=== PATIENT | female | born 1955 | race African-American/Black ===

== ENCOUNTER 2017-03-13 10:46 | Emergency (ER) | payer BC, OTHER ==
[~2017-03-13] VITALS: Ht 160 cm; Wt 90.3 kg
[~2017-03-13 10:46] MED LIST: ALDACTONE25 MG PO; AMITRIPTYLINE H25 M2 PO; AMLODIPINE BESY10 MG PO; AMLODIPINE BESYL5 MG PO; ASPIRIN EC81 M1 PO; ATACAND HCT 321 EAC1 PO; AUGMENTIN 875875 MG PO; CARAFATE 1 GM TA1 G1 PO; COMPAZINE10 MG PO; DIOVAN HCT 3201 EAC1 PO; GLUCOPHAGE500 MG PO; GLYCOPYRROLATE 22 M1 PO; HYDROCODONE-AP1 EAC6 PO; IBUPROFEN 600600 M1 PO; KLOR-CON 10 ER10 MEQ PO; KLOR-CON 1010 MEQ PO; LANSOPRAZOLE30 MG PO; LEVOTHROID150 MCG PO; LIPITOR40 MG PO; LOPRESSOR 50 MG50 M1 PO; MEDROLDOSEPACK PO; NEXIUM 40 MG CA40 M1 PO; NORCO 5-325 TA1 EACH PO; OMEPRAZOLE40 MG PO; PERCOCET 5-3251 EACH PO; PREVACID 30MG C30 M1 PO; PROAIR HFA8.5 GM INH; PROVENTIL17 G1 IH; SIMVASTATIN40 MG PO; SYNTHROID137 MCG PO; TIROSINT150 MCG PO; TOPROL XL50 MG PO; TORADOL 10 MG T10 MG PO; TRAMADOL 50 MG50 MG PO; VALSARTAN160 MG PO; ZOFRAN ODT4 MG PO; ZPAK PO; ZYRTEC10 M1 PO; ZYRTEC10 M2 PO
[2017-03-13] MEDS ORDERED: METFORMIN HCL500 MG PO (11:23)
[2017-03-13] MEDS ORDERED: NAPROSYN500 MG PO (11:32)
== END 2017-03-13 11:57 | disposition home or self-care (01) ==
LOC: ER 10:46
DX: S63.694A Other sprain of right ring finger, initial encounter (principal); Z98.890 Other specified postprocedural states; Z90.710 Acquired absence of both cervix and uterus; I10 Essential (primary) hypertension; E03.9 Hypothyroidism, unspecified; K21.9 Gastro-esophageal reflux disease without esophagitis; J45.909 Unspecified asthma, uncomplicated; Z91.018 Allergy to other foods; F10.99 Alcohol use, unspecified with unspecified alcohol-induced disorder; X50.9XXA Other and unspecified overexertion or strenuous movements or postures, initial encounter; Y93.89 Activity, other specified; Y92.89 Other specified places as the place of occurrence of the external cause; Y99.8 Other external cause status

== ENCOUNTER 2017-08-03 15:44 | Emergency (ER) | payer BC, OTHER ==
[~2017-08-03] VITALS: Ht 160 cm; Wt 96.6 kg
--- NOTE | ~2017-08-03 | EKG ---
[address] [address] ELECTROCARDIOGRAM REPORT Name: TANGELAJOYCE PAMELLA Room #: [facility] [id number] Admission: 08/03/17 Attend Phys: Discharge: 08/03/17 Date of : 57 Report #: [id number] THIS REPORT FOR: //name// [facility] ED Test Date: 2017-08-03 Test Time: 16:21:33 Pat Name: JOYCE HONEYCUTT Department: Room: Gender: F Onyx Chip Terrazzo Worker: [id number] : 1955 Requested By: Paige Welch Order Number: [id number] MD: Carlos Alberto Dixon Measurements Intervals [place] Rate: 63 P: -16 ID: 180 QRS: -18 QRSD: 92 T: 32 QT: 419 QTc: 429 Interpretive Statements Sinus rhythm Borderline left axis deviation Compared to ECG 03/14/2017 08:23:38 No significant changes Electronically Signed On 08-03-2017 21:20:24 CDT by Carlos Alberto Dixon [email or web address] <ELECTRONICALLY SIGNED> By: Carlos Alberto Dixon MD 08/03/172119 20 20 Carlos Alberto Dixon MD /ELEAZAR
[~2017-08-03 15:44] MED LIST changes: +METFORMIN HCL500 MG PO; +NAPROSYN500 MG PO
[2017-08-03 16:43] LABS: URINE BILIRUBIN NEGATIVE (Negative); URINE BLOOD TRACE (Negative); URINE COLOR YELLOW; URINE GLUCOSE-RANDOM* NEGATIVE (Negative); URINE KETONES NEGATIVE (Negative); URINE NITRITE NEGATIVE (Negative); URINE PROTEIN (DIPSTICK) NEGATIVE (Negative); URINE SPECIFIC GRAVITY <= 1.005 (1.003-1.035); URINE UROBILINOGEN 0.2 E.U./dl (0.2-1.0)
[2017-08-03 17:13] LABS: ABSOLUTE NEUTROPHILS 4.5 thou/uL (1.4-8.2); BASOPHILS 1.8 % (0.0-2.0); EOSINOPHILS 4.3 % (0.0-3.0); HEMATOCRIT 36.8 % (37.0-47.0); LYMPHOCYTES 23.5 % (24.0-44.0); MCH 29.5 pg (26.0-34.0); MCHC 32.6 g/dL (28.0-37.0); MCV 90.6 fL (80.0-100.0); MONOCYTES 6.8 % (1.0-8.0); PLATELET COUNT 156 thou/uL (150-400); POLYS 63.6 % (36.0-66.0); RBC 4.06 mil/uL (4.20-5.00); RDW 13.8 % (10.5-14.5); WBC 7.1 thou/uL (4.0-11.0)
[2017-08-03 17:20] LABS: MANUAL DIFF NO
[2017-08-03 17:23] LABS: ANION GAP 8 mmol/L (7-16); BUN 20 mg/dL (7-18); CALCIUM 9.3 mg/dL (8.5-10.1); CHLORIDE 103 mmol/L (98-107); CO2 28 mmol/L (21-32); CREATININE 1.1 mg/dL (0.6-1.0); GLUCOSE 90 mg/dL (74-106); POTASSIUM 3.8 mmol/L (3.5-5.1); SODIUM 139 mmol/L (136-145)
[2017-08-03 17:31] LABS: ALBUMIN 3.9 g/dL (3.4-5.0); ALKALINE PHOSPHATASE 54 U/L (46-116); SGOT 27 U/L (15-37); SGPT 22 U/L (30-65); TOTAL BILIRUBIN 0.3 mg/dL (<0.1-1.0); TOTAL PROTEIN 7.4 g/dL (6.4-8.2); TROPONIN-I < 0.04 ng/mL (<0.04-0.07)
[2017-08-03] MEDS ORDERED: TRAMADOL 50 MG50 MG PO (18:07)
== END 2017-08-03 18:29 | disposition home or self-care (01) ==
LOC: ER 15:44
PROVIDERS: Nurse Practitioner Family
DX: R07.89 Other chest pain (principal); R94.6 Abnormal results of thyroid function studies; M79.1 Myalgia; I10 Essential (primary) hypertension; K21.9 Gastro-esophageal reflux disease without esophagitis; E11.9 Type 2 diabetes mellitus without complications; J45.909 Unspecified asthma, uncomplicated; M19.90 Unspecified osteoarthritis, unspecified site; E03.9 Hypothyroidism, unspecified; E78.5 Hyperlipidemia, unspecified; F10.99 Alcohol use, unspecified with unspecified alcohol-induced disorder; Z98.890 Other specified postprocedural states; Z90.710 Acquired absence of both cervix and uterus; Z91.018 Allergy to other foods

== ENCOUNTER 2017-08-09 18:47 | Inpatient (IN) | payer BC, OTHER ==
[~2017-08-09] VITALS: Ht 160 cm; Wt 101.6 kg
[2017-08-09 18:51] VITALS: BP 160/86
[2017-08-09 21:28] LABS: ABSOLUTE NEUTROPHILS 5.8 thou/uL (1.4-8.2); EOSINOPHILS 1.2 % (0.0-3.0); HEMATOCRIT 38.6 % (37.0-47.0); HEMOGLOBIN 12.6 gm/dL (12.0-15.0); LYMPHOCYTES 30.7 % (24.0-44.0); MANUAL DIFF NO; MCH 29.8 pg (26.0-34.0); MCHC 32.7 g/dL (28.0-37.0); MCV 91.3 fL (80.0-100.0); MONOCYTES 7.5 % (1.0-8.0); PLATELET COUNT 182 thou/uL (150-400); POLYS 59.6 % (36.0-66.0); RBC 4.23 mil/uL (4.20-5.00); WBC 9.8 thou/uL (4.0-11.0)
[2017-08-09 21:40] LABS: CALCIUM 9.1 mg/dL (8.5-10.1); CREATININE 1.1 mg/dL (0.6-1.0); POTASSIUM 4.3 mmol/L (3.5-5.1)
[2017-08-09 21:43] VITALS: BP 156/74
[2017-08-09 21:47] LABS: ALBUMIN 3.9 g/dL (3.4-5.0); TOTAL BILIRUBIN 0.2 mg/dL (<0.1-1.0)
[2017-08-09 22:20] VITALS: BP 149/71
[2017-08-10 05:07] VITALS: BP 149/54
[2017-08-10 07:28] VITALS: BP 169/83
[2017-08-10 15:50] VITALS: BP 104/63
[2017-08-10 20:04] VITALS: BP 143/74
[2017-08-11 08:00] VITALS: BP 135/73
[2017-08-11] MEDS ORDERED: NORCO 10-325 T1 EACH PO (13:40)
[2017-08-11 13:49] VITALS: BP 135/73
== END 2017-08-11 14:15 | disposition home or self-care (01) | DRG 552 ==
LOC: ER 18:47 → 4S 21:21 → EROBS 21:21 → 4S 22:20
PROVIDERS: Nurse Practitioner Family
DX: M51.16 Intervertebral disc disorders with radiculopathy, lumbar region (principal); I10 Essential (primary) hypertension; E78.5 Hyperlipidemia, unspecified; E03.9 Hypothyroidism, unspecified; K21.9 Gastro-esophageal reflux disease without esophagitis; E11.40 Type 2 diabetes mellitus with diabetic neuropathy, unspecified; G47.33 Obstructive sleep apnea (adult) (pediatric); J45.909 Unspecified asthma, uncomplicated; Z79.899 Other long term (current) drug therapy; Z90.49 Acquired absence of other specified parts of digestive tract; Z91.018 Allergy to other foods; Z82.49 Family history of ischemic heart disease and other diseases of the circulatory system
CPT/HCPCS: 10195

== ENCOUNTER → 2017-12-17 | Outpatient (CLI) | payer BC, OTHER ==
[~2017-12-17] MED LIST changes: +LOPRESSOR50 PO; +NORCO 10-325 T1 EACH PO; +SYNTHROID150 MCG PO; +VALSARTAN-HCTZ1 EAC2 PO
== END ==
LOC: RAD 14:58
DX: M79.644 Pain in right finger(s) (principal)

== ENCOUNTER 2018-10-07 01:34 | Inpatient (IN) | payer BC, OTHER ==
[~2018-10-07] VITALS: Ht 160 cm; Wt 96.4 kg
[2018-10-07] VITALS (7 sets, daily range): BP systolic 127–197; BP diastolic 68–110
--- NOTE | ~2018-10-07 | PATH ---
[facility] [address] [address] PATHOLOGY RPT PROCEDURE Name: PAMELA ANAYA Piedad Room #: 364-P DIS IN M.R.#: [id number] Admission: 10/07/18 Date of : 57 Discharge: 10/10/18 Report #: [id number] Path Case #: [id number] [facility] Accession Number: [id number] . 01 Material submitted: . BX GASTRITIS R/O H. PYLORI . 01 Clinical history: . Pre-op diagnosis: Non-cardiac chest pain Post-op diagnosis: Gastritis R/O H. pylori . 02 Diagnosis: Gastric biopsy "rule out H. pylori": - Mild chronic reactive gastropathy. - The immunoperoxidase stains for Helicobacter pylori is negative. . (SHA:mmque; 10/11/18) [facility]/10/11/2018 . 02 Electronically signed: . Aries Gonzales MD, Pathologist NPI- [id number] . 01 Gross description: . The specimen is received in formalin, labeled "Pamela Anaya, biopsy gastritis, R/O H. pylori". Received are two segments of pale diallo soft tissue measuring 0.3 and 0.5 cm in maximum dimensions. The specimen is submitted entirely in cassette A1. (CAA; 10/10/2018) QAC/QAC . 02 Pathologist provided ICD-10: K31.9 . 02 CPT . 133462, L81675 Specimen Comment: A courtesy copy of this report has been sent to Specimen Comment: [phone]. Specimen Comment: Report sent to Performed at: [address] [id number] MD Eulalio Hernández MD Phone: [phone] Performed at: [address] [id number] [address] [address] PATHOLOGY RPT PROCEDURE Name: TANGELAPAMELA Herbert Room #: 364-P DIS IN M.R.#: [id number] Admission: 10/07/18 Date of : 57 Discharge: 10/10/18 Report #: [id number] Path Case #: [id number] MD Jaimee Glass MD Phone: [phone]
--- NOTE | ~2018-10-07 | 2DMMODE ---
[facility] [place] [place] [address] [facility] [place] [address] 2 D/M-MODE ECHOCARDIOGRAM Name: TANGELAJOYCE Room #: 364-P ADM IN .R.#: [id number] Admission: 10/07/18 Attend Phys: Micheal Brantley, Discharge: Date of : 57 Date of Service: 10/07/18 1347 Report #: [id number] THIS REPORT FOR: //name// APPROVED REPORT Study performed: 10/07/2018 13:06:14 EXAM: Comprehensive 2D, Doppler, and color-flow Echocardiogram Patient Location: Echo lab Room #: 364 Status: routine BSA: 1.95 HR: 57 bpm BP: 137/79 mmHg Rhythm: NSR Other Information Study Quality: Adequate Indications Diabetes Chest Pain Hypertension/HDD 2D Dimensions RVDd: 37.47 mm IVSd: 10.94 (7-11mm) LVOT Diam: 22.48 (18-24mm) LVDd: 43.74 mm PWd: 11.31 (7-11mm) Ascending Ao: 31.73 (22-36mm) LVDs: 32.08 (25-40mm) Aortic Root: 26.95 mm IVC: 11.00 mm Volumes Left Atrial Volume (Systole) Single Plane 4CH: 37.52 mL Single Plane 2CH: 78.31 mL LA ESV Index: 31.00 mL/m2 Aortic Valve AoV Peak Matt.: 1.22 m/s AO Peak Gr.: 5.99 mmHg LVOT Max P.31 mmHg LVOT Max V: 0.91 m/s LOUISE Vmax: 2.95 cm2 Mitral Valve E/A Ratio: 0.[address] [facility] [place] [address] 2 D/M-MODE ECHOCARDIOGRAM Name: JOYCE HONEYCUTT Room #: 364-P [facility] IN [facility]#: [id number] Admission: 10/07/18 Attend Phys: Micheal Brantley, Discharge: Date of : 57 Date of Service: 10/07/18 1347 Report #: [id number] MV Decel. Time: 224.20 ms MV E Max Matt.: 0.50 m/s MV A Matt.: 0.58 m/s MV PHT: 65.02 ms IVRT: 129.18 ms Pulmonary Valve PV Peak Matt.: 0.65 m/s PV Peak Gr.: 1.67 mmHg Pulmonary Vein P Vein S: 0.48 m/s P Vein A: 0.25 m/s P Vein D: 0.27 m/s P Vein A Dur.: 120.0 msec P Vein S/D Ratio: 1.78 Left Ventricle The left ventricle is normal size. There is normal left ventricular wall thickness. Left ventricular systolic function is borderline. LVEF is 50-55%. Grade I - abnormal relaxation pattern. Right Ventricle The right ventricle is normal size. The right ventricular systolic function is normal. Atria The left atrium size is normal. The right atrium size is normal. Aortic Valve The aortic valve is normal in structure. No aortic regurgitation is present. There is no aortic valvular stenosis. Mitral Valve The mitral valve is normal in structure. Trace to mild mitral regurgitation. No evidence of mitral valve stenosis. Tricuspid Valve The tricuspid valve is normal in structure. There is no tricuspid valve regurgitation noted. Pulmonic Valve The pulmonary valve is normal in structure. There is no pulmonic valvular regurgitation. Great Vessels The aortic root is normal in size. IVC is normal in size and collapses >50% with inspiration. [facility] [place] [place] [address] [place] [address] 2 D/M-MODE ECHOCARDIOGRAM Name: JOYCE HONEYCUTT Room #: 364-P [facility] IN .R.#: [id number] Admission: 10/07/18 Attend Phys: Micheal Brantley, Discharge: Date of : 57 Date of Service: 10/07/18 1347 Report #: [id number] Pericardium There is no pericardial effusion. <Conclusion> The left ventricle is normal size. There is normal left ventricular wall thickness. Grade I - abnormal relaxation pattern. The right ventricle is normal size. The left atrium size is normal. The aortic valve is normal in structure. Trace to mild mitral regurgitation. There is no tricuspid valve regurgitation noted. <ELECTRONICALLY SIGNED> By: Dg Landa MD 10/07/18 1347 134 134 Dg Landa MD /INF
--- NOTE | ~2018-10-07 | EKG ---
[address] [address] ELECTROCARDIOGRAM REPORT Name: NOEMI HONEYCUTTMIKEL Herbert Room #: 364-P ADM IN M.R.#: [id number] Admission: 10/07/18 Attend Phys: Micheal Brantley MD Discharge: Date of : 57 Report #: [id number] THIS REPORT FOR: //name// [facility] ED Test Date: 2018-10-07 Test Time: 01:42:23 Pat Name: JOYCE HONEYCUTT Department: Room: 364 Gender: F Fire Sprinkler Service Technician: REGINA : 1955 Requested By: Constance Carpio Order Number: [id number] MD: Edilberto Tomas Measurements Intervals [place] Rate: 93 P: 44 [place]: 165 QRS: -16 QRSD: 94 T: 45 QT: 378 QTc: 471 Interpretive Statements Sinus rhythm Borderline left axis deviation Compared to ECG 08/03/2017 16:21:33 No significant changes Electronically Signed On 10-07-2018 8:56:03 PRINCIPAL SECRETARY by Edilberto Tomas [email or web address] <ELECTRONICALLY SIGNED> By: Edilberto Tomas MD, [facility] 10/07/18 0856 0142 014 Edilberto Tomas MD, FAC /EPI
[~2018-10-07 01:34] MED LIST changes: +SYNTHROID137 MC1 PO; -SYNTHROID150 MCG PO
[2018-10-07 03:01] LABS: ABSOLUTE NEUTROPHILS 3.4 thou/uL (1.4-8.2); BASOPHILS 0.9 % (0.0-2.0); EOSINOPHILS 4.1 % (0.0-3.0); HEMATOCRIT 34.3 % (37.0-47.0); HEMOGLOBIN 11.3 gm/dL (12.0-15.0); LYMPHOCYTES 28.8 % (24.0-44.0); MONOCYTES 10.8 % (1.0-8.0); PLATELET COUNT 210 thou/uL (150-400); POLYS 55.4 % (36.0-66.0); RBC 3.77 mil/uL (4.20-5.00); RDW 13.9 % (10.5-14.5); WBC 6.2 thou/uL (4.0-11.0)
[2018-10-07 03:07] LABS: ANION GAP 9 mmol/L (7-16); BUN 23 mg/dL (7-18); CALCIUM 8.5 mg/dL (8.5-10.1); CHLORIDE 100 mmol/L (98-107); CO2 29 mmol/L (21-32); GLUCOSE 99 mg/dL (74-106); POTASSIUM 3.5 mmol/L (3.5-5.1); SODIUM 138 mmol/L (136-145)
[2018-10-07 03:16] LABS: ALBUMIN 3.5 g/dL (3.4-5.0); SGOT 15 U/L (15-37); SGPT 21 U/L (30-65); TOTAL BILIRUBIN 0.2 mg/dL (<0.1-1.0); TOTAL PROTEIN 7.3 g/dL (6.4-8.2); TROPONIN-I <0.06 ng/mL (<0.06)
[2018-10-07 03:49] LABS: URINE BILIRUBIN NEGATIVE (Negative); URINE BLOOD TRACE (Negative); URINE CLARITY CLEAR; URINE COLOR YELLOW; URINE GLUCOSE-RANDOM* NEGATIVE (Negative); URINE KETONES NEGATIVE (Negative); URINE LEUKOCYTES NEGATIVE (Negative); URINE NITRITE NEGATIVE (Negative); URINE PROTEIN (DIPSTICK) NEGATIVE (Negative); URINE SPECIFIC GRAVITY <= 1.005 (1.005-1.035); URINE UROBILINOGEN 0.2 E.U./dl (0.2-1.0)
[2018-10-07] MEDS ORDERED: OLMESARTAN-HCT1 EACH PO (04:32)
[2018-10-07 09:21] LABS: CHOLESTEROL 214 mg/dL (<200); HDL CHOLESTEROL 39 mg/dL (>40); LDL CHOLESTEROL 146 mg/dL (<100); TC:HDL 5.5 Ratio (Not establshd); TRIGLYCERIDE 149 mg/dL (<150); TROPONIN-I <0.06 ng/mL (<0.06); VLDL 30 mg/dL (<40)
[2018-10-07 23:07] LABS: GLYCOHEMOGLOBIN (HGB A1C) 5.5 % (4.8-5.6)
[2018-10-08 05:34] VITALS: BP 117/76
[2018-10-08 07:55] VITALS: BP 138/80
[2018-10-08 16:57] VITALS: BP 141/84
[2018-10-08 19:40] VITALS: BP 125/75
[2018-10-09 05:25] VITALS: BP 114/73
[2018-10-09 07:28] VITALS: BP 142/77
[2018-10-09] MEDS ORDERED: PANTOPRAZOLE SO40 M1 PO (09:17)
[2018-10-09 15:42] VITALS: BP 146/76
[2018-10-09 20:00] VITALS: BP 115/68
[2018-10-10 03:20] VITALS: BP 107/56
[2018-10-10 08:06] VITALS: BP 125/63
[2018-10-10] MEDS ORDERED: CARDIZEM CD120 MG PO (09:08)
[2018-10-10 10:00] VITALS: BP 125/63
[2018-10-10 10:17] VITALS: BP 125/63
== END 2018-10-10 11:54 | disposition home or self-care (01) | DRG 392 ==
LOC: ER 01:34 → EROBS 04:11 → 3W 04:11 → ENTRNSPT 10-10 11:22 → EDTRNSPTSTS 10-10 11:26 → 3W 10-10 11:54
PROVIDERS: Emergency Medicine; Nurse Practitioner Acute Care
PROC: 0DB68ZX Excision of Stomach, Via Natural or Artificial Opening Endoscopic, Diagnostic (ICD-10-PCS; principal; 2018-10-09)
DX: K29.70 Gastritis, unspecified, without bleeding (principal); K52.9 Noninfective gastroenteritis and colitis, unspecified; I10 Essential (primary) hypertension; K22.4 Dyskinesia of esophagus; E78.5 Hyperlipidemia, unspecified; E03.9 Hypothyroidism, unspecified; K21.9 Gastro-esophageal reflux disease without esophagitis; J45.909 Unspecified asthma, uncomplicated; G47.33 Obstructive sleep apnea (adult) (pediatric); E11.42 Type 2 diabetes mellitus with diabetic polyneuropathy; L53.8 Other specified erythematous conditions; Z90.49 Acquired absence of other specified parts of digestive tract; Z91.02 Food additives allergy status; Z90.710 Acquired absence of both cervix and uterus; Z90.721 Acquired absence of ovaries, unilateral; Z82.49 Family history of ischemic heart disease and other diseases of the circulatory system; Z79.82 Long term (current) use of aspirin; Z83.2 Family history of diseases of the blood and blood-forming organs and certain disorders involving the immune mechanism; Z79.899 Other long term (current) drug therapy
CPT/HCPCS: 10879; 62110; 62900; 70005

== ENCOUNTER 2019-01-13 16:24 | Emergency (ER) | payer BC, OTHER ==
[~2019-01-13] VITALS: Ht 160 cm; Wt 92.5 kg
[~2019-01-13 16:24] MED LIST changes: +CARDIZEM CD120 MG PO; +OLMESARTAN-HCT1 EACH PO; +PANTOPRAZOLE SO40 M1 PO
[2019-01-13 16:46] LABS: ABSOLUTE NEUTROPHILS 2.6 thou/uL (1.4-8.2); BASOPHILS 0.5 % (0.0-2.0); EOSINOPHILS 3.4 % (0.0-3.0); HEMATOCRIT 36.9 % (37.0-47.0); HEMOGLOBIN 12.3 gm/dL (12.0-15.0); LYMPHOCYTES 30.6 % (24.0-44.0); MCH 30.3 pg (26.0-34.0); MCHC 33.2 g/dL (28.0-37.0); MCV 91.2 fL (80.0-100.0); MONOCYTES 9.7 % (1.0-8.0); PLATELET COUNT 239 thou/uL (150-400); POLYS 55.8 % (36.0-66.0); RBC 4.05 mil/uL (4.20-5.00); RDW 13.5 % (10.5-14.5); WBC 4.7 thou/uL (4.0-11.0)
[2019-01-13 16:48] LABS: URINE BILIRUBIN NEGATIVE (Negative); URINE BLOOD NEGATIVE (Negative); URINE CLARITY CLEAR; URINE COLOR YELLOW; URINE GLUCOSE-RANDOM* NEGATIVE (Negative); URINE KETONES NEGATIVE (Negative); URINE LEUKOCYTES-REFLEX NEGATIVE (Negative); URINE NITRITE-REFLEX NEGATIVE (Negative); URINE PROTEIN (DIPSTICK) NEGATIVE (Negative)
[2019-01-13 17:38] LABS: CALCIUM 8.7 mg/dL (8.5-10.1); CREATININE 1.1 mg/dL (0.6-1.0); POTASSIUM 3.6 mmol/L (3.5-5.1)
[2019-01-13 17:43] LABS: LIPASE 96 U/L (73-393); TROPONIN-I <0.06 ng/mL (<0.06)
[2019-01-13 17:44] LABS: ALBUMIN 3.7 g/dL (3.4-5.0); TOTAL BILIRUBIN 0.2 mg/dL (<0.1-1.0); TOTAL PROTEIN 7.5 g/dL (6.4-8.2)
[2019-01-13] MEDS ORDERED: PHENERGAN 25 MG25 M1 PO (19:15)
[2019-01-13] MEDS ORDERED: ZANTAC 150MG T150 MG PO (19:15)
[2019-01-13 19:43] VITALS: BP 154/82
== END 2019-01-13 19:46 | disposition home or self-care (01) ==
LOC: ER 16:24
PROVIDERS: Nurse Practitioner Family
DX: R10.13 Epigastric pain (principal); R11.2 Nausea with vomiting, unspecified; R19.7 Diarrhea, unspecified; I10 Essential (primary) hypertension; E78.5 Hyperlipidemia, unspecified; E03.9 Hypothyroidism, unspecified; K21.9 Gastro-esophageal reflux disease without esophagitis; J45.909 Unspecified asthma, uncomplicated; G47.33 Obstructive sleep apnea (adult) (pediatric); E11.43 Type 2 diabetes mellitus with diabetic autonomic (poly)neuropathy; Z91.018 Allergy to other foods; Z90.49 Acquired absence of other specified parts of digestive tract; Z90.710 Acquired absence of both cervix and uterus; Z90.721 Acquired absence of ovaries, unilateral

== ENCOUNTER 2019-01-20 07:24 | Emergency (ER) | payer BC, OTHER ==
[~2019-01-20] VITALS: Ht 160 cm; Wt 93.0 kg
[~2019-01-20 07:24] MED LIST changes: +PHENERGAN 25 MG25 M1 PO; +ZANTAC 150MG T150 MG PO
--- NOTE | 2019-01-20 08:51 | EKG ---
[place] [address] [place] [address] ELECTROCARDIOGRAM REPORT Name: TANGELAJOYCE Room #: [facility] Rene#: [id number] ������������������ Admission: 01/20/19 ������������������ Attend Phys: Discharge: ������������������ Date of : 57 Report #: [id number] ����������������������������������������������������������������� [id number] THIS REPORT FOR: //name// [facility] ED Test Date: 2019-01-20 Test Time: 08:22:06 Pat Name: JOYCE HONEYCUTT Department: Room: Gender: F Herpetologist: ISABELA : 1955 Requested By: Constance Carpio Order Number: [id number] MD: Edilberto Tomas Measurements Intervals [place] Rate: 89 P: 47 ME: 166 QRS: -11 QRSD: 89 T: 39 QT: 360 QTc: 439 Interpretive Statements Sinus rhythm No significant abnormality Compared to ECG 10/07/2018 01:42:23 No significant changes Electronically Signed On 01-20-2019 8:51:20 CDT by Edilberto Tomas [email or web address] ��������������������������������������������� <ELECTRONICALLY SIGNED> ���������������������������������������� By: Edilberto Tomas MD, [facility] ��������������������������������������������� 01/20/19 0851 0822 1 Edilberto Tomas MD, FACC /EPI
[2019-01-20] MEDS ORDERED: TESSALON PERLE100 MG PO (10:22)
[2019-01-20] MEDS ORDERED: GUAIFEN-CODEINE10 ML PO (10:22)
[2019-01-20 10:43] VITALS: BP 129/73
== END 2019-01-20 10:43 | disposition home or self-care (01) ==
LOC: ER 07:24
DX: J06.9 Acute upper respiratory infection, unspecified (principal); I10 Essential (primary) hypertension; E78.5 Hyperlipidemia, unspecified; E03.9 Hypothyroidism, unspecified; K21.9 Gastro-esophageal reflux disease without esophagitis; J45.909 Unspecified asthma, uncomplicated; G47.33 Obstructive sleep apnea (adult) (pediatric); E11.42 Type 2 diabetes mellitus with diabetic polyneuropathy; Z90.49 Acquired absence of other specified parts of digestive tract; Z90.710 Acquired absence of both cervix and uterus; Z90.721 Acquired absence of ovaries, unilateral; Z91.02 Food additives allergy status

== ENCOUNTER 2019-04-01 20:07 | Emergency (ER) | payer BC, OTHER ==
[~2019-04-01] VITALS: Ht 160 cm; Wt 90.7 kg
[~2019-04-01 20:07] MED LIST changes: +GUAIFEN-CODEINE10 ML PO; +TESSALON PERLE100 MG PO
[2019-04-01 20:14] VITALS: BP 175/90
[2019-04-01] MEDS ORDERED: MOBIC15 MG PO (20:24)
== END 2019-04-01 21:04 | disposition home or self-care (01) ==
LOC: ER 20:07
DX: M72.2 Plantar fascial fibromatosis (principal); I10 Essential (primary) hypertension; E78.5 Hyperlipidemia, unspecified; E03.9 Hypothyroidism, unspecified; E11.9 Type 2 diabetes mellitus without complications; K21.9 Gastro-esophageal reflux disease without esophagitis; J45.909 Unspecified asthma, uncomplicated; G47.33 Obstructive sleep apnea (adult) (pediatric); G62.9 Polyneuropathy, unspecified; Z91.018 Allergy to other foods

== ENCOUNTER 2019-08-12 19:09 | Emergency (ER) | payer BC, OTHER ==
[~2019-08-12] VITALS: Ht 160 cm; Wt 102.1 kg
[~2019-08-12 19:09] MED LIST changes: +MOBIC15 MG PO
[2019-08-12 21:15] LABS: ABSOLUTE NEUTROPHILS 3.5 thou/uL (1.4-8.2); BASOPHILS 1.4 % (0.0-2.0); HEMOGLOBIN 12.6 gm/dL (12.0-15.0); LYMPHOCYTES 36.9 % (24.0-44.0); MCH 29.7 pg (26.0-34.0); MCHC 32.5 g/dL (28.0-37.0); MCV 91.5 fL (80.0-100.0); MONOCYTES 8.2 % (1.0-8.0); PLATELET COUNT 198 thou/uL (150-400); POLYS 49.5 % (36.0-66.0); RBC 4.26 mil/uL (4.20-5.00); RDW 13.8 % (10.5-14.5)
[2019-08-12 21:21] LABS: ANION GAP 10 mmol/L (7-16); BUN 21 mg/dL (7-18); CALCIUM 9.3 mg/dL (8.5-10.1); CHLORIDE 105 mmol/L (98-107); CO2 26 mmol/L (21-32); CREATININE 1.1 mg/dL (0.6-1.0); GLUCOSE 94 mg/dL (74-106); POTASSIUM 4.7 mmol/L (3.5-5.1); SODIUM 141 mmol/L (136-145)
[2019-08-12 21:29] LABS: TROPONIN-I <0.06 ng/mL (<0.06)
[2019-08-12] MEDS ORDERED: PREDNISONE 20 M20 MG PO (21:54)
[2019-08-12] MEDS ORDERED: VENTOLIN HFA 1818 GM INH (21:54)
[2019-08-12 22:19] VITALS: BP 155/77
--- NOTE | 2019-08-13 17:32 | EKG ---
[place] [address] [facility] [place] [address] ELECTROCARDIOGRAM REPORT Name: JOYCE HONEYCUTT Room #: DEP Rene#: [id number] Admission: 08/12/19 Attend Phys: Discharge: 08/12/19 Date of : 57 Report #: [id number] THIS REPORT FOR: //name// [facility] ED Test Date: 2019-08-12 Test Time: 20:27:06 Pat Name: JOYCE HONEYCUTT Department: Room: Gender: Senior Case Manager: VAIHDKARY : 1955 Requested By: Ross Rich Order Number: [id number] MD: Edilberto Tomas Measurements Intervals [place] Rate: 72 P: -13 MD: 180 QRS: -22 QRSD: 93 T: 33 QT: 404 QTc: 443 Interpretive Statements Sinus rhythm Leftward axis Baseline wander in lead(s) V2 Compared to ECG 01/20/2019 08:22:06 No significant changes Electronically Signed On 08-13-2019 17:32:03 CDT by Edilberto Tomas [email or web address] <ELECTRONICALLY SIGNED> By: Edilberto Toams MD, [facility] 08/13/19 173 26 26 Edilberto Tomas MD, FACC /EPI
== END 2019-08-12 22:20 | disposition home or self-care (01) ==
LOC: ER 19:09
PROVIDERS: Emergency Medicine
DX: R06.02 Shortness of breath (principal); I10 Essential (primary) hypertension; E11.40 Type 2 diabetes mellitus with diabetic neuropathy, unspecified; E78.5 Hyperlipidemia, unspecified; K21.9 Gastro-esophageal reflux disease without esophagitis; J45.909 Unspecified asthma, uncomplicated; G47.30 Sleep apnea, unspecified; E03.9 Hypothyroidism, unspecified; Z90.49 Acquired absence of other specified parts of digestive tract; Z90.710 Acquired absence of both cervix and uterus; Z98.890 Other specified postprocedural states; Z91.018 Allergy to other foods

== ENCOUNTER 2019-10-27 18:32 | Emergency (ER) | payer BC, OTHER ==
[~2019-10-27] VITALS: Ht 160 cm; Wt 102.1 kg
[~2019-10-27 18:32] MED LIST changes: +PREDNISONE 20 M20 MG PO; +VENTOLIN HFA 1818 GM INH
[2019-10-27 19:03] VITALS: BP 193/105
[2019-10-27 21:52] LABS: ABSOLUTE NEUTROPHILS 4.7 thou/uL (1.4-8.2); BASOPHILS 1.7 % (0.0-2.0); HEMATOCRIT 37.6 % (37.0-47.0); HEMOGLOBIN 12.2 gm/dL (12.0-15.0); LYMPHOCYTES 22.8 % (24.0-44.0); MCH 29.6 pg (26.0-34.0); MCHC 32.4 g/dL (28.0-37.0); MCV 91.3 fL (80.0-100.0); MONOCYTES 9.3 % (1.0-8.0); PLATELET COUNT 156 thou/uL (150-400); POLYS 63.2 % (36.0-66.0); RBC 4.11 mil/uL (4.20-5.00); RDW 13.6 % (10.5-14.5); WBC 7.4 thou/uL (4.0-11.0)
[2019-10-27 21:58] LABS: CALCIUM 10.2 mg/dL (8.5-10.1); CREATININE 1.3 mg/dL (0.6-1.0); POTASSIUM 4.3 mmol/L (3.5-5.1)
[2019-10-27] MEDS ORDERED: ZOFRAN ODT4 MG PO (22:37)
[2019-10-27] MEDS ORDERED: NORCO 5-325 TA1 EAC1 PO (22:37)
[2019-10-27] MEDS ORDERED: SENNA-DOCUSATE1 EAC1 PO (22:37)
[2019-10-27] MEDS ORDERED: DOXYCYCLINE 10100 MG PO (22:37)
[2019-10-27] MEDS ORDERED: IBUPROFEN 800800 M1 PO (22:37)
== END 2019-10-27 23:00 | disposition home or self-care (01) ==
LOC: ER 18:32
PROVIDERS: Emergency Medicine
DX: L03.113 Cellulitis of right upper limb (principal); I10 Essential (primary) hypertension; E78.5 Hyperlipidemia, unspecified; E03.9 Hypothyroidism, unspecified; K21.9 Gastro-esophageal reflux disease without esophagitis; E11.42 Type 2 diabetes mellitus with diabetic polyneuropathy; G47.33 Obstructive sleep apnea (adult) (pediatric); Z91.02 Food additives allergy status; Z91.018 Allergy to other foods

== ENCOUNTER → 2019-11-17 | Outpatient (CLI) | payer BC, OTHER ==
[~2019-11-17] MED LIST changes: +DOXYCYCLINE 10100 MG PO; +IBUPROFEN 800800 M1 PO; +NORCO 5-325 TA1 EAC1 PO; +SENNA-DOCUSATE1 EAC1 PO
== END ==
LOC: CAT 15:11
DX: K76.0 Fatty (change of) liver, not elsewhere classified (principal); M43.16 Spondylolisthesis, lumbar region; N28.1 Cyst of kidney, acquired; M47.815 Spondylosis without myelopathy or radiculopathy, thoracolumbar region; M48.061 Spinal stenosis, lumbar region without neurogenic claudication; M12.88 Other specific arthropathies, not elsewhere classified, other specified site; M47.816 Spondylosis without myelopathy or radiculopathy, lumbar region; K42.9 Umbilical hernia without obstruction or gangrene

== ENCOUNTER 2020-03-23 19:07 | Inpatient (IN) | payer BC, OTHER ==
[~2020-03-23] VITALS: Ht 160 cm; Wt 112.0 kg
[2020-03-23 19:26] VITALS: BP 181/96
[2020-03-23] MEDS ORDERED: LEVO-T25 MCG PO (20:01)
[2020-03-23] MEDS ORDERED: OMEPRAZOLE 20 M20 M1 PO (20:01)
[2020-03-23 20:17] LABS: ABSOLUTE NEUTROPHILS 8.7 thou/uL (1.4-8.2); BASOPHILS 1.2 % (0.0-2.0); EOSINOPHILS 1.8 % (0.0-3.0); HEMATOCRIT 37.4 % (37.0-47.0); HEMOGLOBIN 12.3 gm/dL (12.0-15.0); MCH 29.5 pg (26.0-34.0); MCHC 32.9 g/dL (28.0-37.0); MCV 89.8 fL (80.0-100.0); MONOCYTES 7.2 % (1.0-8.0); PLATELET COUNT 202 thou/uL (150-400); POLYS 80.8 % (36.0-66.0); RBC 4.16 mil/uL (4.20-5.00); RDW 14.5 % (10.5-14.5); WBC 10.7 thou/uL (4.0-11.0)
[2020-03-23 20:25] LABS: ANION GAP 8 mmol/L (7-16); BUN 17 mg/dL (7-18); CALCIUM 8.8 mg/dL (8.5-10.1); CHLORIDE 101 mmol/L (98-107); CO2 31 mmol/L (21-32); CREATININE 1.3 mg/dL (0.6-1.0); GLUCOSE 121 mg/dL (74-106); POTASSIUM 3.3 mmol/L (3.5-5.1); SODIUM 140 mmol/L (136-145)
[2020-03-23 20:35] LABS: ALBUMIN 3.8 g/dL (3.4-5.0); SGOT 29 U/L (15-37); SGPT 31 U/L (30-65); TOTAL BILIRUBIN 0.4 mg/dL (0.2-1.0); TOTAL PROTEIN 7.5 g/dL (6.4-8.2); TROPONIN-I <0.06 ng/mL (<0.06)
[2020-03-23 22:48] LABS: PROTIME 10.7 Seconds (9.3-11.4)
[2020-03-23 22:51] VITALS: BP 172/92
[2020-03-23 23:50] VITALS: BP 189/111
[2020-03-24] MEDS ORDERED: LASIX 40 MG TAB40 MG PO (00:13)
[2020-03-24] MEDS ORDERED: SINGULAIR 10 MG10 M1 PO (00:13)
[2020-03-24] MEDS ORDERED: OMEPRAZOLE 20 M20 M1 PO (00:14)
[2020-03-24] MEDS ORDERED: LEVO-T100 MCG PO ×2 (00:15→01:21)
--- NOTE | 2020-03-24 01:02 | NUR ---
PT ADMITTED FROM ED WITH PULMONARY EMBOLISM.R/O COVID-19,ON ENHANCED ISOLATION PE ORDERS.ARRIVED TO UNIT VIA CART ACCOMPANIED BY THE STAFF.PT HYPERTENSIVE AND TACHYCARDIAC.ON RA W/O RESP DISTRESS.ORIENTED TO RM AND UNIT ACTIVITIES.POC REVIEWED AND INAGREEMENT.HEPARIN DRIP INFUSING.ADMISSION ASSESSMENT COMPLETED DOCUMENTED.UP AD JAYSON TO BR W/STEADY GAIT.DENIES PAIN. NO CONCERNS VOICED.WILL CONT TO MONITOR PER POC.PT SINUS RHYTHM ON MONITOR AT THIS TIME.
[2020-03-24 05:36] LABS: HEMATOCRIT 34.6 % (37.0-47.0); HEMOGLOBIN 11.5 gm/dL (12.0-15.0); MCH 29.8 pg (26.0-34.0); MCHC 33.2 g/dL (28.0-37.0); MCV 89.8 fL (80.0-100.0); RBC 3.86 mil/uL (4.20-5.00); RDW 14.5 % (10.5-14.5); WBC 9.8 thou/uL (4.0-11.0)
[2020-03-24 05:50] LABS: CALCIUM 8.1 mg/dL (8.5-10.1); POTASSIUM 3.3 mmol/L (3.5-5.1)
[2020-03-24 06:41] VITALS: BP 145/77
[2020-03-24 08:00] VITALS: BP 126/60
[2020-03-24 12:44] VITALS: BP 152/83
--- NOTE | 2020-03-24 13:35 | NUR ---
INITIAL ASSESSMENT: SW reviewed chart and spoke with nursing and attending physician. Pt was admitted from home due to PE. Pt is on heparin gtt. Pt is in Enhanced Isolation to r/o COVID-19. Pt is febrile. Not currently on O2. Pt with hx of HTN/DM/Asthma. SW spoke with pt via phone. Introduced role of SW. Pt is alert/orientated x 4. Pt reports she lives at home with her . Prior to admission, pt was independent with ADLs. No use of DME. No hx of services or post-acute placement. Pt works home delivery driver. Pt states that she has an inhaler that she uses regularly. Pt's PCP is Afshan Gil with Dr. Mitchell at [facility]. No discharge needs identified at this time. SW is following to assist as needed with discharge planning.
[2020-03-24 16:15] VITALS: BP 154/74
--- NOTE | 2020-03-24 19:16 | NUR ---
ASSUMED PATIENT CARE AT 0700. A/O X4. TOLERATED ON RA. UP AD JAYSON. ON HEPARIN GTT. GENERLIZED EDEMA. SLOWLY TOWARDS POC GOALS.
[2020-03-24 20:04] VITALS: BP 158/77
--- NOTE | 2020-03-24 23:51 | NUR ---
PT APTT CAME BACK 110. HELD HEPARIN DRIP PER PROTOCOL FOR 1 HOUR AND DECREASED DRIP BY 3KG/U/HR. DRIP GTT NOW AT 8.99. REDRAW FOR APTT 0100. HOURLY ROUNDING.
[2020-03-25 03:19] VITALS: BP 158/77
[2020-03-25 05:06] VITALS: BP 140/74
--- NOTE | 2020-03-25 05:36 | NUR ---
FOLLOWING POC WITH HEPARIN DRIP AND TITRATION AFTER Q6 LABS. PT WAS PLACED ON CONT PULSE OX VIA TELEBOX. 02 STATS AND VSS HAVE BEEN STABLE WITH NO FEVER. PT IS A/0X4 AND AMBULATES AD JAYSON IN ROOM. PT HAS HAD TWO NEGATIVE COVID LABS. HOURLY ROUNDING AND CALL LIGHT PLACED WITHIN REACH FOR PT. ENHANCED ISOLATION PRECAUTIONS IN PLACE.
[2020-03-25 08:35] VITALS: BP 147/83
--- NOTE | 2020-03-25 12:15 | NUR ---
DISCHARGE NOTE: REJI reviewed chart and spoke with nursing and attending physician. Pt is medically stable for discharge home today. Pt to be discharged home on Eliquis. SW faxed prescription cards (30-day free card and co-pay card) to pt's nurse to provide to pt. REJI spoke with pt via phone to discuss discharge. Pt verbalized understanding of use of Eliquis cards. Pt's family will provide transportation home. No additional SW needs identified at this time, but is available to assist should needs arise.
[2020-03-25] MEDS ORDERED: LISINOPRIL10 MG PO (12:40)
[2020-03-25] MEDS ORDERED: ELIQUIS5 MG PO (12:40)
[2020-03-25] MEDS ORDERED: MIRALAX17 GM PO (12:40)
[2020-03-25] MEDS ORDERED: LEVAQUIN 750 M750 MG PO (12:43)
[2020-03-25 13:45] VITALS: BP 147/83
--- NOTE | 2020-03-25 15:49 | NUR ---
PROGRESSING TOWARDS POC GOALS. DC TO HOME .
== END 2020-03-25 15:45 | disposition home or self-care (01) | DRG 175 ==
LOC: ER 19:07 → EROBS 22:30 → 3W 22:30
PROVIDERS: Nurse Practitioner Family; Pediatrics; Student in an Organized Health Care Education/Training Program; ADMIT Internal Medicine
DX: I26.99 Other pulmonary embolism without acute cor pulmonale (principal); J18.9 Pneumonia, unspecified organism; Z68.41 Body mass index [BMI] 40.0-44.9, adult; I10 Essential (primary) hypertension; E78.5 Hyperlipidemia, unspecified; E03.9 Hypothyroidism, unspecified; K21.9 Gastro-esophageal reflux disease without esophagitis; J45.909 Unspecified asthma, uncomplicated; G47.33 Obstructive sleep apnea (adult) (pediatric); E11.42 Type 2 diabetes mellitus with diabetic polyneuropathy; Z20.828 Contact with and (suspected) exposure to other viral communicable diseases; E66.01 Morbid (severe) obesity due to excess calories; R00.0 Tachycardia, unspecified; Z82.49 Family history of ischemic heart disease and other diseases of the circulatory system; Z90.49 Acquired absence of other specified parts of digestive tract; Z90.710 Acquired absence of both cervix and uterus; Z90.721 Acquired absence of ovaries, unilateral; Z88.8 Allergy status to other drugs, medicaments and biological substances; Z91.02 Food additives allergy status
CPT/HCPCS: 10879

== ENCOUNTER 2020-04-18 12:34 | Emergency (ER) | payer BC, OTHER ==
[~2020-04-18] VITALS: Ht 160 cm; Wt 104.3 kg
[~2020-04-18 12:34] MED LIST changes: +ELIQUIS5 MG PO; +LASIX 40 MG TAB40 MG PO; +LEVAQUIN 750 M750 MG PO; +LEVO-T100 MCG PO; +LEVO-T25 MCG PO; +LISINOPRIL10 MG PO; +MIRALAX17 GM PO; +OMEPRAZOLE 20 M20 M1 PO; +SINGULAIR 10 MG10 M1 PO
[2020-04-18 13:10] LABS: BASOPHILS 1.4 % (0.0-2.0); EOSINOPHILS 3.9 % (0.0-3.0); HEMOGLOBIN 12.6 gm/dL (12.0-15.0); LYMPHOCYTES 30.3 % (24.0-44.0); MCH 29.6 pg (26.0-34.0); MCHC 33.2 g/dL (28.0-37.0); MCV 89.1 fL (80.0-100.0); MONOCYTES 8.1 % (1.0-8.0); PLATELET COUNT 218 thou/uL (150-400); POLYS 56.3 % (36.0-66.0); RBC 4.26 mil/uL (4.20-5.00); RDW 14.4 % (10.5-14.5); WBC 5.4 thou/uL (4.0-11.0)
[2020-04-18] MEDS ORDERED: LEVOXYL125 MCG PO (13:12)
[2020-04-18 13:20] LABS: ANION GAP 7 mmol/L (7-16); BUN 23 mg/dL (7-18); CALCIUM 8.5 mg/dL (8.5-10.1); CHLORIDE 106 mmol/L (98-107); CO2 27 mmol/L (21-32); CREATININE 1.2 mg/dL (0.6-1.0); GLUCOSE 146 mg/dL (74-106); SODIUM 140 mmol/L (136-145)
[2020-04-18 13:23] LABS: PROTIME 10.7 Seconds (9.3-11.4)
[2020-04-18 13:30] LABS: ALBUMIN 3.5 g/dL (3.4-5.0); SGOT 19 U/L (15-37); SGPT 21 U/L (30-65); TOTAL BILIRUBIN 0.3 mg/dL (0.2-1.0); TOTAL PROTEIN 7.1 g/dL (6.4-8.2); TROPONIN-I <0.06 ng/mL (<0.06)
[2020-04-18] MEDS ORDERED: CYCLOBENZAPRINE5 MG PO (14:20)
[2020-04-18] MEDS ORDERED: NORCO 5-325 TA1 EAC1 PO (14:20)
[2020-04-18 15:31] VITALS: BP 170/78
--- NOTE | 2020-04-19 07:52 | EKG ---
[facility] [place] [address] [address] ELECTROCARDIOGRAM REPORT Name: JOYCE HONEYCUTT Room #: DEP [facility]#: [id number] Admission: 04/18/20 Attend Phys: Discharge: 04/18/20 Date of : 57 Report #: [id number] THIS REPORT FOR: cc: Afshan Gil Beth RNP Lundgren, Craig H. MD [facility] THIS REPORT FOR: //name// [facility] ED Test Date: 2020-04-18 Test Time: 13:05:16 Pat Name: JOYCE HONEYCUTT Department: Room: Gender: F Charter Pilot[facility] 1955 Requested By: Penelope Saleem Order Number: [id number] MD: Edilberto Tomas Measurements Intervals [place] Rate: 70 P: 54 MT: 173 QRS: -2 QRSD: 90 T: 48 QT: 390 QTc: 421 Interpretive Statements Sinus rhythm Normal tracing Compared to ECG 08/12/2019 20:27:06 Left-axis deviation no longer present Electronically Signed On 04-19-2020 7:51:55 CDT by Edilberto Tomas [email or web address] <ELECTRONICALLY SIGNED> By: Edilberto Tomas MD, [facility] 04/19/20 0751 1305 1305 Edilberto Tomas MD, [facility] /EPI
== END 2020-04-18 15:34 | disposition home or self-care (01) ==
LOC: ER 12:34
PROVIDERS: Physician Assistant
DX: M54.2 Cervicalgia (principal); R07.89 Other chest pain; M54.6 Pain in thoracic spine; I10 Essential (primary) hypertension; J45.909 Unspecified asthma, uncomplicated; E78.5 Hyperlipidemia, unspecified; E11.9 Type 2 diabetes mellitus without complications; K21.9 Gastro-esophageal reflux disease without esophagitis; E03.9 Hypothyroidism, unspecified; Z90.710 Acquired absence of both cervix and uterus; Z91.018 Allergy to other foods; Z79.899 Other long term (current) drug therapy; V49.59XA Passenger injured in collision with other motor vehicles in traffic accident, initial encounter; Y93.89 Activity, other specified; Y92.89 Other specified places as the place of occurrence of the external cause; Y99.8 Other external cause status

== ENCOUNTER → 2020-04-28 | Outpatient (CLI) | payer BC, OTHER ==
[~2020-04-28] MED LIST changes: +CYCLOBENZAPRINE5 MG PO; +LEVOXYL125 MCG PO
== END ==
LOC: RAD 14:33
PROVIDERS: ATTEND Nurse Practitioner
DX: Z12.31 Encounter for screening mammogram for malignant neoplasm of breast (principal); N63.0 Unspecified lump in unspecified breast

== ENCOUNTER 2020-05-31 08:50 | Emergency (ER) | payer BC, OTHER ==
[~2020-05-31] VITALS: Ht 160 cm; Wt 108.9 kg
[2020-05-31 09:41] LABS: ABSOLUTE NEUTROPHILS 7.2 thou/uL (1.4-8.2); BASOPHILS 0.9 % (0.0-2.0); EOSINOPHILS 1.9 % (0.0-3.0); HEMATOCRIT 37.7 % (37.0-47.0); HEMOGLOBIN 12.4 gm/dL (12.0-15.0); MCH 28.9 pg (26.0-34.0); MCHC 32.8 g/dL (28.0-37.0); MCV 88.1 fL (80.0-100.0); MONOCYTES 4.4 % (1.0-8.0); PLATELET COUNT 211 thou/uL (150-400); POLYS 85.8 % (36.0-66.0); RBC 4.28 mil/uL (4.20-5.00); RDW 14.6 % (10.5-14.5); WBC 8.4 thou/uL (4.0-11.0)
[2020-05-31 09:47] LABS: ANION GAP 11 mmol/L (7-16); BUN 25 mg/dL (7-18); CALCIUM 8.3 mg/dL (8.5-10.1); CHLORIDE 104 mmol/L (98-107); CO2 26 mmol/L (21-32); CREATININE 1.1 mg/dL (0.6-1.0); GLUCOSE 121 mg/dL (74-106); POTASSIUM 3.8 mmol/L (3.5-5.1); SODIUM 141 mmol/L (136-145)
[2020-05-31 09:53] LABS: ALBUMIN 3.5 g/dL (3.4-5.0); DIRECT BILIRUBIN < 0.1 mg/dL (<0.1-0.2); LIPASE 233 U/L (73-393); SGOT 24 U/L (15-37); SGPT 26 U/L (30-65); TOTAL BILIRUBIN 0.3 mg/dL (0.2-1.0); TOTAL PROTEIN 7.3 g/dL (6.4-8.2)
[2020-05-31 10:14] LABS: URINE BILIRUBIN NEGATIVE (Negative); URINE BLOOD NEGATIVE (Negative); URINE CLARITY CLEAR; URINE COLOR YELLOW; URINE GLUCOSE-RANDOM* NEGATIVE (Negative); URINE KETONES NEGATIVE (Negative); URINE LEUKOCYTES-REFLEX NEGATIVE (Negative); URINE NITRITE-REFLEX NEGATIVE (Negative); URINE PROTEIN (DIPSTICK) NEGATIVE (Negative); URINE UROBILINOGEN 0.2 E.U./dl (0.2-1.0)
[2020-05-31 11:05] VITALS: BP 124/65
[2020-05-31] MEDS ORDERED: NYSTATIN15 G2 TOP (11:31)
== END 2020-05-31 11:38 | disposition home or self-care (01) ==
LOC: ER 08:50
PROVIDERS: Emergency Medicine
DX: J06.9 Acute upper respiratory infection, unspecified (principal); R19.7 Diarrhea, unspecified; I10 Essential (primary) hypertension; E11.9 Type 2 diabetes mellitus without complications; K21.9 Gastro-esophageal reflux disease without esophagitis; E03.9 Hypothyroidism, unspecified; E78.5 Hyperlipidemia, unspecified; J45.909 Unspecified asthma, uncomplicated; Z79.899 Other long term (current) drug therapy; Z20.828 Contact with and (suspected) exposure to other viral communicable diseases

== ENCOUNTER → 2020-06-04 | Outpatient (CLI) | payer BC, OTHER ==
[~2020-06-04] MED LIST changes: +NYSTATIN15 G2 TOP
== END ==
LOC: CAT 11:30
PROVIDERS: ATTEND Nurse Practitioner
DX: K42.9 Umbilical hernia without obstruction or gangrene (principal); K57.30 Diverticulosis of large intestine without perforation or abscess without bleeding; R11.0 Nausea; Z90.49 Acquired absence of other specified parts of digestive tract

== ENCOUNTER → 2020-07-26 | Outpatient (CLI) | payer BC, OTHER ==
[2020-07-26 09:34] LABS: HEMOGLOBIN 12.2 gm/dL (12.0-15.0); MCH 28.6 pg (26.0-34.0); MCHC 32.1 g/dL (28.0-37.0); RBC 4.28 mil/uL (4.20-5.00); WBC 6.3 thou/uL (4.0-11.0)
== END ==
LOC: CAT 08:26
PROVIDERS: ATTEND Nurse Practitioner
DX: I26.99 Other pulmonary embolism without acute cor pulmonale (principal); K76.0 Fatty (change of) liver, not elsewhere classified; Z90.49 Acquired absence of other specified parts of digestive tract

== ENCOUNTER 2020-07-31 12:21 | Emergency (ER) | payer BC, OTHER ==
[~2020-07-31] VITALS: Ht 160 cm; Wt 104.8 kg
[2020-07-31 13:17] LABS: ABSOLUTE NEUTROPHILS 9.6 thou/uL (1.4-8.2); BASOPHILS 0.4 % (0.0-2.0); EOSINOPHILS 0.1 % (0.0-3.0); HEMATOCRIT 39.6 % (37.0-47.0); HEMOGLOBIN 12.9 gm/dL (12.0-15.0); LYMPHOCYTES 7.8 % (24.0-44.0); MCH 29.2 pg (26.0-34.0); MCHC 32.6 g/dL (28.0-37.0); MCV 89.4 fL (80.0-100.0); MONOCYTES 2.4 % (1.0-8.0); PLATELET COUNT 185 thou/uL (150-400); POLYS 89.3 % (36.0-66.0); RBC 4.43 mil/uL (4.20-5.00); WBC 10.7 thou/uL (4.0-11.0)
[2020-07-31 13:25] LABS: ANION GAP 11 mmol/L (7-16); BUN 24 mg/dL (7-18); CALCIUM 8.8 mg/dL (8.5-10.1); CHLORIDE 103 mmol/L (98-107); CO2 24 mmol/L (21-32); CREATININE 1.1 mg/dL (0.6-1.0); GLUCOSE 171 mg/dL (74-106); POTASSIUM 3.5 mmol/L (3.5-5.1); SODIUM 138 mmol/L (136-145)
[2020-07-31 13:36] LABS: ALBUMIN 3.7 g/dL (3.4-5.0); MAGNESIUM 2.1 mg/dL (1.8-2.4); SGOT 22 U/L (15-37); SGPT 26 U/L (30-65); TOTAL BILIRUBIN 0.5 mg/dL (0.2-1.0); TOTAL PROTEIN 7.9 g/dL (6.4-8.2); TROPONIN-I <0.06 ng/mL (<0.06)
[2020-07-31] MEDS ORDERED: PEPCID20 MG PO (13:36)
[2020-07-31] MEDS ORDERED: PREDNISONE 20 M20 MG PO (13:36)
[2020-07-31 14:21] VITALS: BP 159/71
--- NOTE | 2020-08-02 07:37 | EKG ---
[facility] [place] [address] [place] [place] [address] ELECTROCARDIOGRAM REPORT Name: JOYCE HONEYCUTT Room #: DEP [facility]#: [id number] Admission: 07/31/20 Attend Phys: Discharge: 07/31/20 Date of : 57 Report #: [id number] THIS REPORT FOR: cc: Afshan Gil Beth RNP Lundgren, Craig H. MD [facility] ~ THIS REPORT FOR: //name// [facility] ED Test Date: 2020-07-31 Test Time: 12:59:53 Pat Name: JOYCE HONEYCUTT Department: Room: Gender: F Compactor Driver: : 1955 Requested By: Alex Bhatia Order Number: [id number] MD: Edilberto Tomas Measurements Intervals [place] Rate: 68 P: 52 [place]: 173 QRS: -3 QRSD: 95 T: 35 QT: 393 QTc: 418 Interpretive Statements Sinus rhythm No significant abnormality Compared to ECG 04/18/2020 13:05:16 No significant changes Electronically Signed On 08-02-2020 7:36:55 CDT by Edilberto Tomas [email or web address] <ELECTRONICALLY SIGNED> By: Edilberto Tomas MD, FACC 08/02/20 0736 1259 1259 Edilberto Tomas MD, [facility] /EPI
== END 2020-07-31 14:30 | disposition home or self-care (01) ==
LOC: ER 12:21
PROVIDERS: Emergency Medicine
DX: T78.49XA Other allergy, initial encounter (principal); L03.116 Cellulitis of left lower limb; L03.115 Cellulitis of right lower limb; R05 Cough; I10 Essential (primary) hypertension; E78.5 Hyperlipidemia, unspecified; J45.909 Unspecified asthma, uncomplicated; K21.9 Gastro-esophageal reflux disease without esophagitis; E03.9 Hypothyroidism, unspecified; E11.42 Type 2 diabetes mellitus with diabetic polyneuropathy; M19.90 Unspecified osteoarthritis, unspecified site; E66.9 Obesity, unspecified; Z79.899 Other long term (current) drug therapy; Z91.018 Allergy to other foods; Z68.42 Body mass index [BMI] 45.0-49.9, adult; Z90.49 Acquired absence of other specified parts of digestive tract; Z90.711 Acquired absence of uterus with remaining cervical stump; X58.XXXA Exposure to other specified factors, initial encounter

== ENCOUNTER → 2020-09-28 | Outpatient (CLI) | payer BC, OTHER ==
[~2020-09-28] MED LIST changes: +PEPCID20 MG PO
== END ==
LOC: LAB 11:13
PROVIDERS: ATTEND Nurse Practitioner
DX: R05 Cough (principal); R53.83 Other fatigue; Z20.828 Contact with and (suspected) exposure to other viral communicable diseases

== ENCOUNTER 2020-10-25 21:30 | Emergency (ER) | payer BC ==
[~2020-10-25] VITALS: Ht 160 cm; Wt 108.9 kg
[2020-10-25 23:16] LABS: ABSOLUTE NEUTROPHILS 4.5 thou/uL (1.4-8.2); BASOPHILS 1.4 % (0.0-2.0); EOSINOPHILS 4.1 % (0.0-3.0); HEMATOCRIT 39.1 % (37.0-47.0); HEMOGLOBIN 12.6 gm/dL (12.0-15.0); LYMPHOCYTES 23.6 % (24.0-44.0); MCH 29.1 pg (26.0-34.0); MCHC 32.2 g/dL (28.0-37.0); MCV 90.5 fL (80.0-100.0); MONOCYTES 7.7 % (1.0-8.0); PLATELET COUNT 231 thou/uL (150-400); POLYS 63.2 % (36.0-66.0); RBC 4.32 mil/uL (4.20-5.00); RDW 14.5 % (10.5-14.5); WBC 7.1 thou/uL (4.0-11.0)
[2020-10-25 23:52] LABS: ANION GAP 10 mmol/L (7-16); BUN 22 mg/dL (7-18); CALCIUM 9.4 mg/dL (8.5-10.1); CHLORIDE 104 mmol/L (98-107); CO2 26 mmol/L (21-32); CREATININE 1.2 mg/dL (0.6-1.0); GLUCOSE 125 mg/dL (74-106); POTASSIUM 3.6 mmol/L (3.5-5.1); SODIUM 140 mmol/L (136-145)
[2020-10-26 00:02] LABS: ALBUMIN 3.8 g/dL (3.4-5.0); DIRECT BILIRUBIN < 0.1 mg/dL (<0.1-0.2); SGOT 21 U/L (15-37); SGPT 27 U/L (14-59); TOTAL BILIRUBIN 0.4 mg/dL (0.2-1.0); TOTAL PROTEIN 7.5 g/dL (6.4-8.2); TROPONIN-I <0.06 ng/mL (<0.06)
[2020-10-26] MEDS ORDERED: NORCO 5-325 TA1 EAC2 PO (02:49)
[2020-10-26 02:55] VITALS: BP 142/65
--- NOTE | 2020-10-26 07:31 | EKG ---
[place] [address] [address] [facility] [place] [address] ELECTROCARDIOGRAM REPORT Name: TANGELAJOYCE Room #: DEP Rene#: [id number] Admission: 10/25/20 Attend Phys: Discharge: 10/26/20 Date of : 57 Report #: [id number] [facility] ED Test Date: 2020-10-25 Test Time: 21:38:10 Pat Name: JOYCE HONEYCUTT Department: Room: Gender: F Welcome Wagon Hostess: SNEHA : 1955 Requested By: Constance Carpio Order Number: [id number] MD: Jerrod Alvarado Measurements Intervals [place] Rate: 90 P: 40 MT: 153 QRS: -23 QRSD: 90 T: 49 QT: 374 QTc: 458 Interpretive Statements Sinus rhythm Probable left atrial enlargement Left ventricular hypertrophy Baseline wander in lead(s) II,III,aVF Compared to ECG 07/31/2020 12:59:53 Left ventricular hypertrophy now present Electronically Signed On 10-26-2020 7:31:43 GENERAL MEDICAL PRACTITIONER by Jerrod Alvarado [email or web address] <ELECTRONICALLY SIGNED> By: Jerrod Alvarado MD, [facility] 10/26/20 0731 37 37 Jerrod Alvarado MD, [facility] /EPI
== END 2020-10-26 03:01 | disposition home or self-care (01) ==
LOC: ER 21:30
PROVIDERS: Emergency Medicine
DX: R07.9 Chest pain, unspecified (principal); R06.00 Dyspnea, unspecified; E78.5 Hyperlipidemia, unspecified; I10 Essential (primary) hypertension; E03.9 Hypothyroidism, unspecified; E11.9 Type 2 diabetes mellitus without complications; K21.9 Gastro-esophageal reflux disease without esophagitis; J45.909 Unspecified asthma, uncomplicated; Z90.710 Acquired absence of both cervix and uterus; Z90.49 Acquired absence of other specified parts of digestive tract; Z79.899 Other long term (current) drug therapy; Z91.018 Allergy to other foods

== ENCOUNTER 2020-11-11 18:05 | Emergency (ER) | payer BC, OTHER ==
[~2020-11-11] VITALS: Ht 160 cm; Wt 108.9 kg
[~2020-11-11 18:05] MED LIST changes: +NORCO 5-325 TA1 EAC2 PO
[2020-11-11] MEDS ORDERED: HYDROCODON-ACE1 EAC7 PO (20:12)
[2020-11-11 20:32] VITALS: BP 205/102
== END 2020-11-11 20:32 | disposition home or self-care (01) ==
LOC: ER 18:05
DX: S92.422A Displaced fracture of distal phalanx of left great toe, initial encounter for closed fracture (principal); S70.12XA Contusion of left thigh, initial encounter; R51.9 Headache, unspecified; I10 Essential (primary) hypertension; E11.9 Type 2 diabetes mellitus without complications; E78.5 Hyperlipidemia, unspecified; E03.9 Hypothyroidism, unspecified; K21.9 Gastro-esophageal reflux disease without esophagitis; M19.90 Unspecified osteoarthritis, unspecified site; J45.909 Unspecified asthma, uncomplicated; G62.9 Polyneuropathy, unspecified; Z90.49 Acquired absence of other specified parts of digestive tract; Z90.711 Acquired absence of uterus with remaining cervical stump; Z79.899 Other long term (current) drug therapy; Z91.018 Allergy to other foods; W22.8XXA Striking against or struck by other objects, initial encounter; Y93.89 Activity, other specified; Y92.098 Other place in other non-institutional residence as the place of occurrence of the external cause; Y99.8 Other external cause status

== ENCOUNTER → 2020-11-29 | Outpatient (CLI) | payer BC, OTHER ==
[~2020-11-29] MED LIST changes: +HYDROCODON-ACE1 EAC7 PO
== END ==
LOC: ULTRA 09:46
PROVIDERS: ATTEND Nurse Practitioner
DX: I16.0 Hypertensive urgency (principal)

== ENCOUNTER → 2020-12-22 | Outpatient (CLI) | payer BC, OTHER ==
[~2020-12-22] VITALS: Ht 160 cm; Wt 109.0 kg
[~2020-12-22] MED LIST changes: +HYDRALAZINE 2525 M1 PO; +LISINOPRIL20 MG PO; +SINGULAIR 10 MG10 MG PO; +TOPROL XL100 MG PO
[2020-12-22 08:34] VITALS: BP 135/75
[2020-12-22 08:58] LABS: HEMOGLOBIN 12.1 gm/dL (12.0-15.0); MCH 28.7 pg (26.0-34.0); MCHC 31.8 g/dL (28.0-37.0); MCV 90.3 fL (80.0-100.0); RBC 4.21 mil/uL (4.20-5.00); RDW 13.9 % (10.5-14.5); WBC 6.9 thou/uL (4.0-11.0)
[2020-12-22 09:00] LABS: CALCIUM 8.2 mg/dL (8.5-10.1); CREATININE 1.2 mg/dL (0.6-1.0); POTASSIUM 3.3 mmol/L (3.5-5.1)
== END | disposition home or self-care (01) ==
LOC: CATH 07:40
PROVIDERS: ATTEND Nuclear Medicine Nuclear Cardiology
DX: I73.9 Peripheral vascular disease, unspecified (principal); I70.1 Atherosclerosis of renal artery; I15.0 Renovascular hypertension; I10 Essential (primary) hypertension; E78.5 Hyperlipidemia, unspecified; E03.9 Hypothyroidism, unspecified; E11.9 Type 2 diabetes mellitus without complications; K21.9 Gastro-esophageal reflux disease without esophagitis; G62.9 Polyneuropathy, unspecified; Z98.890 Other specified postprocedural states; Z79.899 Other long term (current) drug therapy; J45.909 Unspecified asthma, uncomplicated; Z90.710 Acquired absence of both cervix and uterus; Z90.49 Acquired absence of other specified parts of digestive tract; Z88.8 Allergy status to other drugs, medicaments and biological substances

== ENCOUNTER → 2021-01-24 | Outpatient (CLI) | payer BC, OTHER | LOC: SJCVCIMAG 10:46 | PROVIDERS: ATTEND Internal Medicine | DX: R10.30 Lower abdominal pain, unspecified (principal); I10 Essential (primary) hypertension; E78.5 Hyperlipidemia, unspecified; E11.9 Type 2 diabetes mellitus without complications; Z79.82 Long term (current) use of aspirin; Z79.899 Other long term (current) drug therapy; Z88.8 Allergy status to other drugs, medicaments and biological substances ==

== ENCOUNTER 2021-02-28 17:30 | Emergency (ER) | payer BC, OTHER ==
[~2021-02-28] VITALS: Ht 160 cm; Wt 106.6 kg
[2021-02-28 18:09] LABS: URINE BILIRUBIN NEGATIVE (Negative); URINE BLOOD NEGATIVE (Negative); URINE CLARITY CLEAR; URINE COLOR YELLOW; URINE GLUCOSE-RANDOM* NEGATIVE (Negative); URINE KETONES NEGATIVE (Negative); URINE LEUKOCYTES-REFLEX NEGATIVE (Negative); URINE NITRITE-REFLEX NEGATIVE (Negative); URINE PROTEIN (DIPSTICK) NEGATIVE (Negative); URINE SPECIFIC GRAVITY 1.015 (1.005-1.035); URINE UROBILINOGEN 0.2 E.U./dl (0.2-1.0)
[2021-02-28 19:20] LABS: BASOPHILS 2.2 % (0.0-2.0); EOSINOPHILS 3.1 % (0.0-3.0); HEMATOCRIT 38.6 % (37.0-47.0); HEMOGLOBIN 12.5 gm/dL (12.0-15.0); LYMPHOCYTES 19.1 % (24.0-44.0); MCH 29.1 pg (26.0-34.0); MCHC 32.4 g/dL (28.0-37.0); MCV 90.1 fL (80.0-100.0); MONOCYTES 8.2 % (1.0-8.0); PLATELET COUNT 205 thou/uL (150-400); POLYS 67.4 % (36.0-66.0); RBC 4.29 mil/uL (4.20-5.00); RDW 14.7 % (10.5-14.5); WBC 7.4 thou/uL (4.0-11.0)
[2021-02-28 19:29] LABS: ANION GAP 5 mmol/L (7-16); BUN 17 mg/dL (7-18); CALCIUM 8.8 mg/dL (8.5-10.1); CHLORIDE 107 mmol/L (98-107); CO2 31 mmol/L (21-32); CREATININE 1.1 mg/dL (0.6-1.0); GLUCOSE 106 mg/dL (74-106); POTASSIUM 3.9 mmol/L (3.5-5.1); SODIUM 143 mmol/L (136-145)
[2021-02-28 19:39] LABS: ALBUMIN 3.7 g/dL (3.4-5.0); AMYLASE 50 U/L (25-115); DIRECT BILIRUBIN < 0.1 mg/dL (<0.1-0.2); LIPASE 115 U/L (73-393); SGOT 17 U/L (15-37); SGPT 29 U/L (14-59); TOTAL BILIRUBIN 0.2 mg/dL (0.2-1.0); TOTAL PROTEIN 7.4 g/dL (6.4-8.2); TROPONIN-I <0.06 ng/mL (<0.06)
[2021-02-28] MEDS ORDERED: NORCO5 PO (20:11)
[2021-02-28] MEDS ORDERED: ZOFRAN ODT4 MG PO (20:11)
[2021-02-28 20:27] VITALS: BP 139/79
--- NOTE | 2021-03-01 08:44 | EKG ---
[place] [address] [facility] [place] [address] ELECTROCARDIOGRAM REPORT Name: JOYCE HONEYCUTT Room #: DEP Rene#: [id number] Admission: 02/28/21 Attend Phys: Discharge: 02/28/21 Date of : 57 Report #: [id number] [facility] ED Test Date: 2021-02-28 Test Time: 18:01:02 Pat Name: JOYCE HONEYCUTT Department: Room: Gender: F Bilingual Medical Assistant: SNEHA : 1955 Requested By: Gold Green Order Number: [id number] MD: Jerrod Alvarado Measurements Intervals [place] Rate: 63 P: 22 SC: 176 QRS: -4 QRSD: 90 T: 59 QT: 431 QTc: 442 Interpretive Statements Sinus rhythm Compared to ECG 10/25/2020 21:38:10 Left ventricular hypertrophy no longer present Electronically Signed On 03-01-2021 8:43:57 CDT by Jerrod Alvarado [email or web address] <ELECTRONICALLY SIGNED> By: Jerrod Alvarado MD, [facility] 03/01/21 0843 180 180 Jerrod Alvarado MD, FACC /EPI
== END 2021-02-28 20:55 | disposition home or self-care (01) ==
LOC: ER 17:30
PROVIDERS: Emergency Medicine
DX: M54.5 Low back pain (principal); I10 Essential (primary) hypertension; R10.9 Unspecified abdominal pain; K59.00 Constipation, unspecified; R06.02 Shortness of breath; K21.9 Gastro-esophageal reflux disease without esophagitis; E03.9 Hypothyroidism, unspecified; E78.5 Hyperlipidemia, unspecified; J45.909 Unspecified asthma, uncomplicated; E11.40 Type 2 diabetes mellitus with diabetic neuropathy, unspecified; Z90.49 Acquired absence of other specified parts of digestive tract; Z90.711 Acquired absence of uterus with remaining cervical stump; Z98.890 Other specified postprocedural states; Z96.0 Presence of urogenital implants; Z79.899 Other long term (current) drug therapy; Z91.018 Allergy to other foods; Z88.1 Allergy status to other antibiotic agents

== ENCOUNTER 2021-03-28 06:08 | Emergency (ER) | payer BC, OTHER ==
[~2021-03-28] VITALS: Ht 160 cm; Wt 154.2 kg
[~2021-03-28 06:08] MED LIST changes: +NORCO5 PO
[2021-03-28 06:53] LABS: URINE BILIRUBIN NEGATIVE (Negative); URINE BLOOD TRACE (Negative); URINE CLARITY SL CLOUDY; URINE COLOR YELLOW; URINE GLUCOSE-RANDOM* NEGATIVE (Negative); URINE KETONES NEGATIVE (Negative); URINE LEUKOCYTES-REFLEX NEGATIVE (Negative); URINE NITRITE-REFLEX NEGATIVE (Negative); URINE PROTEIN (DIPSTICK) NEGATIVE (Negative); URINE SPECIFIC GRAVITY 1.015 (1.005-1.035); URINE UROBILINOGEN 0.2 E.U./dl (0.2-1.0)
[2021-03-28 07:26] LABS: HEMATOCRIT 36.4 % (37.0-47.0); HEMOGLOBIN 11.9 gm/dL (12.0-15.0); MCH 29.3 pg (26.0-34.0); MCHC 32.7 g/dL (28.0-37.0); MCV 89.6 fL (80.0-100.0); RBC 4.07 mil/uL (4.20-5.00); RDW 15.3 % (10.5-14.5); WBC 8.6 thou/uL (4.0-11.0)
[2021-03-28 07:41] LABS: ALBUMIN 3.3 g/dL (3.4-5.0); TOTAL BILIRUBIN 0.4 mg/dL (0.2-1.0); TOTAL PROTEIN 6.9 g/dL (6.4-8.2)
[2021-03-28] MEDS ORDERED: ELIQUIS5 MG PO (07:58)
[2021-03-28] MEDS ORDERED: LEVOTHYROXINE112 MC1 PO (07:59)
[2021-03-28] MEDS ORDERED: LOPERAMIDE2 MG PO (08:51)
[2021-03-28 09:29] VITALS: BP 162/78
== END 2021-03-28 09:29 | disposition home or self-care (01) ==
LOC: ER 06:08
PROVIDERS: Student in an Organized Health Care Education/Training Program
DX: R19.7 Diarrhea, unspecified (principal); R10.817 Generalized abdominal tenderness; I10 Essential (primary) hypertension; K21.9 Gastro-esophageal reflux disease without esophagitis; J45.909 Unspecified asthma, uncomplicated; E03.9 Hypothyroidism, unspecified; E11.9 Type 2 diabetes mellitus without complications; Z98.890 Other specified postprocedural states; Z88.1 Allergy status to other antibiotic agents; Z91.018 Allergy to other foods; Z90.710 Acquired absence of both cervix and uterus; Z90.89 Acquired absence of other organs; Z90.49 Acquired absence of other specified parts of digestive tract

== ENCOUNTER 2021-05-22 13:23 | Emergency (ER) | payer BC, OTHER ==
[~2021-05-22] VITALS: Ht 160 cm; Wt 108.9 kg
[~2021-05-22 13:23] MED LIST changes: +LEVOTHYROXINE112 MC1 PO; +LOPERAMIDE2 MG PO
[2021-05-22 13:41] VITALS: BP 203/108
[2021-05-22 14:20] LABS: ABSOLUTE NEUTROPHILS 9.6 thou/uL (1.4-8.2); BASOPHILS 0.7 % (0.0-2.0); EOSINOPHILS 1.1 % (0.0-3.0); HEMATOCRIT 38.6 % (37.0-47.0); HEMOGLOBIN 12.6 gm/dL (12.0-15.0); LYMPHOCYTES 6.7 % (24.0-44.0); MCH 29.3 pg (26.0-34.0); MCHC 32.6 g/dL (28.0-37.0); MONOCYTES 5.7 % (1.0-8.0); PLATELET COUNT 198 thou/uL (150-400); POLYS 85.8 % (36.0-66.0); RBC 4.29 mil/uL (4.20-5.00); RDW 14.5 % (10.5-14.5); WBC 11.2 thou/uL (4.0-11.0)
[2021-05-22 14:35] LABS: CALCIUM 8.3 mg/dL (8.5-10.1); CREATININE 1.1 mg/dL (0.6-1.0); POTASSIUM 3.9 mmol/L (3.5-5.1)
== END 2021-05-22 15:33 | disposition home or self-care (01) ==
LOC: ER 13:23
PROVIDERS: Nurse Practitioner
DX: E86.0 Dehydration (principal); K59.00 Constipation, unspecified; M79.10 Myalgia, unspecified site; I10 Essential (primary) hypertension; E78.5 Hyperlipidemia, unspecified; E03.9 Hypothyroidism, unspecified; E11.40 Type 2 diabetes mellitus with diabetic neuropathy, unspecified; K21.9 Gastro-esophageal reflux disease without esophagitis; J45.909 Unspecified asthma, uncomplicated; Z79.899 Other long term (current) drug therapy; Z90.49 Acquired absence of other specified parts of digestive tract; Z90.710 Acquired absence of both cervix and uterus; Z90.721 Acquired absence of ovaries, unilateral; Z88.1 Allergy status to other antibiotic agents; Z91.02 Food additives allergy status; Z20.822 Contact with and (suspected) exposure to COVID-19

== ENCOUNTER 2021-06-14 01:24 | Emergency (ER) | payer BC, OTHER ==
[~2021-06-14] VITALS: Ht 160 cm; Wt 113.4 kg
[2021-06-14] MEDS ORDERED: AMOXICILLIN 50500 MG PO (01:43)
[2021-06-14] MEDS ORDERED: DICLOFENAC SOD100 G1 TOP (01:45)
[2021-06-14] MEDS ORDERED: PREDNISONE 10 M10 MG PO (01:45)
[2021-06-14 01:57] LABS: URINE BILIRUBIN NEGATIVE (Negative); URINE BLOOD NEGATIVE (Negative); URINE CLARITY CLEAR; URINE COLOR YELLOW; URINE GLUCOSE-RANDOM* TRACE (Negative); URINE KETONES NEGATIVE (Negative); URINE LEUKOCYTES-REFLEX NEGATIVE (Negative); URINE NITRITE-REFLEX NEGATIVE (Negative); URINE PROTEIN (DIPSTICK) NEGATIVE (Negative); URINE SPECIFIC GRAVITY <= 1.005 (1.005-1.035); URINE UROBILINOGEN 0.2 E.U./dl (0.2-1.0)
[2021-06-14 02:49] LABS: ABSOLUTE NEUTROPHILS 6.7 thou/uL (1.4-8.2); BASOPHILS 0.6 % (0.0-2.0); EOSINOPHILS 0.1 % (0.0-3.0); HEMATOCRIT 38.6 % (37.0-47.0); HEMOGLOBIN 12.6 gm/dL (12.0-15.0); MCH 29.3 pg (26.0-34.0); MCHC 32.6 g/dL (28.0-37.0); MCV 89.8 fL (80.0-100.0); MONOCYTES 4.8 % (1.0-8.0); PLATELET COUNT 249 thou/uL (150-400); POLYS 84.5 % (36.0-66.0); RDW 15.1 % (10.5-14.5); WBC 7.9 thou/uL (4.0-11.0)
[2021-06-14 02:56] LABS: CALCIUM 8.1 mg/dL (8.5-10.1); CREATININE 1.2 mg/dL (0.6-1.0); POTASSIUM 3.9 mmol/L (3.5-5.1)
[2021-06-14 03:00] LABS: ALBUMIN 3.3 g/dL (3.4-5.0); TOTAL BILIRUBIN 0.2 mg/dL (0.2-1.0); TOTAL PROTEIN 7.3 g/dL (6.4-8.2)
[2021-06-14 03:40] VITALS: BP 175/80
--- NOTE | 2021-06-14 07:19 | EKG ---
[place] [address] [address] [place] [address] ELECTROCARDIOGRAM REPORT Name: JOYCE HONEYCUTT Room #: DEP Rene#: [id number] Admission: 06/14/21 Attend Phys: Discharge: 06/14/21 Date of : 57 Report #: [id number] [facility] ED Test Date: 2021-06-14 Test Time: 01:44:52 Pat Name: JOYCE HONEYCUTT Department: Room: Gender: F Strategy Consultant: CORBIN : 1955 Requested By: Laine Coughlin Order Number: [id number] MD: Jerrod Alvarado Measurements Intervals [place] Rate: 65 P: 55 [place]: 159 QRS: 2 QRSD: 90 T: 51 QT: 426 QTc: 443 Interpretive Statements Sinus rhythm Probable left atrial enlargement Compared to ECG 02/28/2021 18:01:02 No significant changes Electronically Signed On 06-14-2021 7:19:09 CDT by Jerrod Alvarado [email or web address] <ELECTRONICALLY SIGNED> By: Jerrod Alvarado MD, [facility] 06/14/21 0719 0144 0144 Jerrod Alvarado MD, FACC /EPI
== END 2021-06-14 03:40 | disposition home or self-care (01) ==
LOC: ER 01:24
PROVIDERS: Student in an Organized Health Care Education/Training Program
DX: E11.65 Type 2 diabetes mellitus with hyperglycemia (principal); I10 Essential (primary) hypertension; K21.9 Gastro-esophageal reflux disease without esophagitis; E78.5 Hyperlipidemia, unspecified; E03.9 Hypothyroidism, unspecified; E11.40 Type 2 diabetes mellitus with diabetic neuropathy, unspecified; J45.909 Unspecified asthma, uncomplicated; Z88.1 Allergy status to other antibiotic agents; Z90.710 Acquired absence of both cervix and uterus; Z91.02 Food additives allergy status; Z90.49 Acquired absence of other specified parts of digestive tract; Z79.899 Other long term (current) drug therapy

== ENCOUNTER → 2021-06-24 | Outpatient (CLI) | payer BC, OTHER ==
[~2021-06-24] MED LIST changes: +AMOXICILLIN 50500 MG PO; +DICLOFENAC SOD100 G1 TOP; +PREDNISONE 10 M10 MG PO
== END ==
LOC: SJCVCIMAG 07:59
PROVIDERS: ATTEND Nuclear Medicine Nuclear Cardiology
DX: I65.23 Occlusion and stenosis of bilateral carotid arteries (principal); I10 Essential (primary) hypertension; I70.1 Atherosclerosis of renal artery; E03.9 Hypothyroidism, unspecified; E11.9 Type 2 diabetes mellitus without complications; E66.9 Obesity, unspecified; I73.9 Peripheral vascular disease, unspecified; Z79.84 Long term (current) use of oral hypoglycemic drugs; Z79.82 Long term (current) use of aspirin; Z79.899 Other long term (current) drug therapy; Z88.8 Allergy status to other drugs, medicaments and biological substances

== ENCOUNTER → 2021-06-29 | Outpatient (CLI) | payer BC, OTHER | LOC: SJCVCIMAG 11:22 | PROVIDERS: ATTEND Nuclear Medicine Nuclear Cardiology | DX: I70.1 Atherosclerosis of renal artery (principal); I10 Essential (primary) hypertension; I73.9 Peripheral vascular disease, unspecified; E78.5 Hyperlipidemia, unspecified; E11.65 Type 2 diabetes mellitus with hyperglycemia; Z88.1 Allergy status to other antibiotic agents; Z79.82 Long term (current) use of aspirin; Z79.899 Other long term (current) drug therapy; Z79.84 Long term (current) use of oral hypoglycemic drugs ==

== ENCOUNTER 2021-09-27 18:06 | Emergency (ER) | payer BC, OTHER ==
[~2021-09-27] VITALS: Ht 160 cm; Wt 111.1 kg
[~2021-09-27 18:06] MED LIST changes: +CLOPIDOGREL75 MG PO
[2021-09-27] MEDS ORDERED: METFORMIN HCL500 M3 PO (18:37)
[2021-09-27 18:51] LABS: ABSOLUTE NEUTROPHILS 5.2 thou/uL (1.4-8.2); BASOPHILS 0.2 % (0.0-2.0); EOSINOPHILS 2.3 % (0.0-3.0); HEMATOCRIT 39.2 % (37.0-47.0); HEMOGLOBIN 12.7 gm/dL (12.0-15.0); MCH 29.5 pg (26.0-34.0); MCHC 32.5 g/dL (28.0-37.0); MONOCYTES 8.6 % (1.0-8.0); PLATELET COUNT 222 thou/uL (150-400); POLYS 67.9 % (36.0-66.0); RBC 4.31 mil/uL (4.20-5.00); RDW 14.5 % (10.5-14.5); WBC 7.7 thou/uL (4.0-11.0)
[2021-09-27 18:57] LABS: CALCIUM 8.7 mg/dL (8.5-10.1); POTASSIUM 3.6 mmol/L (3.5-5.1)
[2021-09-27 20:41] VITALS: BP 176/75
--- NOTE | 2021-09-28 08:49 | EKG ---
[place] [address] [address] [facility] [place] [address] ELECTROCARDIOGRAM REPORT Name: TANGELAJOYCE R Room #: [facility] Rene#: [id number] Admission: 09/27/21 Attend Phys: Discharge: 09/27/21 Date of : 57 Report #: [id number] [facility] ED Test Date: 2021-09-27 Test Time: 18:13:17 Pat Name: JOYCE HONEYCUTT Department: Room: Gender: F Thermocouple Tester: JESU : 1955 Requested By: Butch Molina Order Number: [id number] MD: Edilberto Tomas Measurements Intervals [place] Rate: 58 P: 35 [place]: 184 QRS: -9 QRSD: 95 T: 39 QT: 423 QTc: 416 Interpretive Statements Sinus bradycardia Leftward axis Compared to ECG 07/22/2021 14:27:57 No significant change was found Electronically Signed On 09-28-2021 8:48:59 SUPERINTENDENT RADIO COMMUNICATIONS by Edilberto Tomas [email or web address] <ELECTRONICALLY SIGNED> By: Edilberto Tomas MD, [facility] 09/28/21 0848 1813 1813 Edilberto Tomas MD, FACC /EPI
== END 2021-09-27 20:45 | disposition home or self-care (01) ==
LOC: ER 18:06
PROVIDERS: Nurse Practitioner
DX: R07.89 Other chest pain (principal); Z20.822 Contact with and (suspected) exposure to COVID-19; M25.512 Pain in left shoulder; I10 Essential (primary) hypertension; E78.5 Hyperlipidemia, unspecified; E03.9 Hypothyroidism, unspecified; E11.9 Type 2 diabetes mellitus without complications; K21.9 Gastro-esophageal reflux disease without esophagitis; J45.909 Unspecified asthma, uncomplicated; Z90.710 Acquired absence of both cervix and uterus; Z88.1 Allergy status to other antibiotic agents; Z79.899 Other long term (current) drug therapy; Z98.890 Other specified postprocedural states